=== PATIENT | female | born 1965 | race Two or more races ===

== ENCOUNTER 2024-03-07 07:18 | Outpatient (CLI) | payer OTHER | END 2024-03-07 07:31 | disposition home or self-care (01) | LOC: TOM 07:18 | PROVIDERS: ATTEND Internal Medicine Gastroenterology | DX: K62.89 Other specified diseases of anus and rectum (principal); R10.32 Left lower quadrant pain; R10.11 Right upper quadrant pain; K56.699 Other intestinal obstruction unspecified as to partial versus complete obstruction ==